=== PATIENT | female | born 1960 | race Caucasian/White ===

== ENCOUNTER → 2023-06-04 12:51 | Outpatient (REF) | payer OTHER, SELFPAY | LOC: DHCBC MAIN 12:51 | PROVIDERS: ATTENDING PHYSICIAN Internal Medicine Cardiovascular Disease; FAMILY PHYSICIAN Family Medicine | DX: E78.5 Hyperlipidemia, unspecified (principal); U09.9 Post COVID-19 condition, unspecified; R06.02 Shortness of breath; R53.83 Other fatigue | CPT/HCPCS: 93306 ==

== ENCOUNTER → 2024-02-07 09:01 | Outpatient (REF) | payer MEDICARE, SELFPAY | LOC: MRI 3T 09:01 | PROVIDERS: ATTENDING PHYSICIAN Family Medicine | DX: M79.672 Pain in left foot (principal); M54.16 Radiculopathy, lumbar region; N30.00 Acute cystitis without hematuria; E66.3 Overweight | CPT/HCPCS: 72148; 73718 ==

== ENCOUNTER → 2024-03-23 14:32 | Outpatient (REF) | payer MEDICARE, SELFPAY | LOC: WDC 14:32 | PROVIDERS: ATTENDING PHYSICIAN Nurse Practitioner Acute Care; FAMILY PHYSICIAN Family Medicine; OTHER PHYSICIAN Obstetrics & Gynecology | DX: Z01.419 Encounter for gynecological examination (general) (routine) without abnormal findings (principal); Z12.31 Encounter for screening mammogram for malignant neoplasm of breast; M25.559 Pain in unspecified hip | CPT/HCPCS: 73502; 77063; 77067 ==

== ENCOUNTER → 2024-04-03 08:04 | Outpatient (REF) | payer MEDICARE, SELFPAY | LOC: MRI 3T 08:04 | PROVIDERS: ATTENDING PHYSICIAN Neurological Surgery; FAMILY PHYSICIAN Family Medicine | DX: M54.50 Low back pain, unspecified (principal); G96.191 Perineural cyst | CPT/HCPCS: 72195 ==